=== PATIENT | female | born 2000 | race Caucasian/White ===

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

== ENCOUNTER 2020-11-01 08:26 | Emergency (ER) | payer BC, OTHER ==
[~2020-11-01] VITALS: Ht 154.9 cm; Wt 56.2 kg
[2020-11-01 08:26] VITALS: BP_SYST 110
[2020-11-01] MEDS: NACL 0.9% 1,000 ML IV ONE (08:45)
[2020-11-01] MEDS: KETOROLAC TROMETHAMINE 30 MG VIAL IVP ONE (08:45)
[2020-11-01 09:12] LABS: BILIRUBIN,URINE NEGATIVE (NEGATIVE); BLOOD, URINE 2+ (NEGATIVE); COLOR,URINE YELLOW (YELLOW); GLUCOSE,URINE NEGATIVE (NEGATIVE); KETONES,URINE NEGATIVE (NEGATIVE); LEUKOCYTE ESTERASE ,URINE 1+ (NEGATIVE); NITRITE, URINE NEGATIVE (NEGATIVE); PH,URINE 6.5 (5.0-8.0); PROTEIN URINE 1+ (NEGATIVE); UROBILINOGEN,URINE 0.2 (0.2-1.0)
[2020-11-01 09:15] LABS: CLARITY/URINE HAZY (CLEAR)
[2020-11-01 09:18] LABS: RBC,URINE 20-50 /HPF (0-3)
[2020-11-01 09:19] LABS: BACTERIA,URINE MODERATE /HPF (None Seen)
[2020-11-01 09:26] LABS: BASOPHILS # (AUTO) 0.1 K/uL (0.0-0.2); BASOPHILS % (AUTO) 0.6 % (0.0-2.0); EOSINOPHILS # (AUTO) 0.5 K/uL (0.0-0.4); EOSINOPHILS % (AUTO) 4.5 % (0.0-4.0); HEMATOCRIT 36.2 % (36-48); HEMOGLOBIN 12.3 g/dL (12.0-16.0); LYMPHOCYTES # (AUTO) 1.4 K/uL (1.0-5.5); LYMPHOCYTES % (AUTO) 12.7 % (20.5-51.5); MEAN CORPUSCULAR HEMOGLOBIN 30 pg (27-31); MEAN CORPUSCULAR HGB CONC 34 % (32-36); MEAN CORPUSCULAR VOLUME 89 fL (79.0-98.0); MONOCYTES # (AUTO) 0.8 K/uL (0.0-1.0); MONOCYTES % (AUTO) 7.4 % (1.7-9.3); NEUTROPHILS # (AUTO) 8.2 K/uL (1.8-7.7); NEUTROPHILS % (AUTO) 74.8 % (40.0-70.0); PLATELET COUNT (AUTO) 301 K/uL (130-430); RED BLOOD CELL COUNT(AUTO) 4.06 MIL/uL (4.2-6.2); RED CELL DISTRIBUTION WIDTH 13.6 % (9.0-15.0)
[2020-11-01 09:32] LABS: CALCIUM 8.5 mg/dL (8.4-11.0); CREATININE 0.76 mg/dL (0.55-1.30); POTASSIUM 3.9 mmol/L (3.5-5.1)
[2020-11-01 09:38] LABS: ALBUMIN 3.7 g/dL (3.4-4.8); TOTAL BILIRUBIN 0.2 mg/dL (0.0-1.0)
[2020-11-01] MEDS: cefTRIAXone 1 GM IVPB PREMIX 50 ML IV ONE (10:40)
[2020-11-01] MEDS ORDERED: NITR-85 PO (11:59)
[2020-11-01 13:51] VITALS: BP_SYST 110
== END 2020-11-01 13:52 | disposition home or self-care (01) ==
LOC: SED 08:26
DX: N39.0 Urinary tract infection, site not specified (principal)
CPT/HCPCS: 36415; 74176; 76376; 80053; 81000; 85025; 87040; 87086; 96361; 96365; 96374; 99284; J7030

== ENCOUNTER 2021-11-17 08:01 | Emergency (ER) | payer BC ==
[~2021-11-17] VITALS: Ht 154.9 cm; Wt 56.7 kg
[~2021-11-17 08:01] MED LIST: NITR-85 PO
[2021-11-17 08:26] VITALS: BP_SYST 119
[2021-11-17] MEDS ORDERED: IBUP-1969 PO (08:33)
[2021-11-17] MEDS ORDERED: CEPH-548 PO (08:33)
[2021-11-17 08:39] VITALS: BP_SYST 119
== END 2021-11-17 08:39 | disposition home or self-care (01) ==
LOC: SED 08:01
DX: L73.8 Other specified follicular disorders (principal); Z79.899 Other long term (current) drug therapy
CPT/HCPCS: 99283

== ENCOUNTER 2024-02-25 19:44 | Emergency (ER) | payer BC ==
[~2024-02-25] VITALS: Ht 154.9 cm; Wt 55.8 kg
[~2024-02-25 19:44] MED LIST changes: +CEPH-548 PO; +IBUP-1969 PO
[2024-02-25 19:54] VITALS: BP_SYST 116; PULSE 88; RESP 19; TEMP 97.8; O2SAT 99
[2024-02-25] MEDS: KETOROLAC TROMETHAMINE 30 MG VIAL IVP ONE (20:14)
[2024-02-25] MEDS: NACL 0.9% 1,000 ML IV ONE (20:16)
[2024-02-25 20:45] LABS: ALBUMIN 4.2 g/dL (3.4-4.8); BILIRUBIN,DIRECT 0.1 mg/dL (0.0-0.3); CREATININE 0.87 mg/dL (0.55-1.30); POTASSIUM 3.5 mmol/L (3.5-5.1); TOTAL BILIRUBIN 0.4 mg/dL (0.0-1.0); TOTAL PROTEIN, SERUM 7.6 g/dL (6.4-8.3)
[2024-02-25 21:14] LABS: BASOPHILS % (AUTO) 0.6 % (0.0-2.0); EOSINOPHILS # (AUTO) 0.2 K/uL (0.0-0.4); EOSINOPHILS % (AUTO) 2.5 % (0.0-4.0); HEMATOCRIT 38.5 % (36-48); HEMOGLOBIN 13.3 g/dL (12.0-16.0); LYMPHOCYTES # (AUTO) 2.7 K/uL (1.0-5.5); LYMPHOCYTES % (AUTO) 31.5 % (20.5-51.5); MEAN CORPUSCULAR HEMOGLOBIN 30 pg (27-31); MEAN CORPUSCULAR HGB CONC 35 % (32-36); MEAN CORPUSCULAR VOLUME 88 fL (79.0-98.0); MONOCYTES # (AUTO) 0.5 K/uL (0.0-1.0); MONOCYTES % (AUTO) 5.9 % (1.7-9.3); NEUTROPHILS % (AUTO) 59.5 % (40.0-70.0); PLATELET COUNT (AUTO) 321 K/uL (130-430); RED BLOOD CELL COUNT(AUTO) 4.37 MIL/uL (4.2-6.2); RED CELL DISTRIBUTION WIDTH 13.7 % (9.0-15.0); WHITE BLOOD COUNT (AUTO) 8.4 K/uL (4.8-10.8)
[2024-02-25] MEDS ORDERED: ONDA-8 TL (21:49)
[2024-02-25] MEDS ORDERED: IBUP-2018 PO (21:49)
[2024-02-25 22:01] LABS: BILIRUBIN,URINE NEGATIVE (NEGATIVE); BLOOD, URINE NEGATIVE (NEGATIVE); CLARITY/URINE CLEAR (CLEAR); COLOR,URINE YELLOW (YELLOW); GLUCOSE,URINE NEGATIVE (NEGATIVE); KETONES,URINE NEGATIVE (NEGATIVE); LEUKOCYTE ESTERASE ,URINE NEGATIVE (NEGATIVE); NITRITE, URINE NEGATIVE (NEGATIVE); PH,URINE 6.5 (5.0-8.0); PROTEIN URINE NEGATIVE (NEGATIVE); UROBILINOGEN,URINE 0.2 (0.2-1.0)
[2024-02-26 00:38] VITALS: BP_SYST 118; PULSE 68; RESP 20; TEMP 98.1; O2SAT 98
== END 2024-02-26 00:38 | disposition home or self-care (01) ==
LOC: SED 19:44
DX: R10.31 Right lower quadrant pain (principal); J45.909 Unspecified asthma, uncomplicated; Z79.899 Other long term (current) drug therapy; Z79.2 Long term (current) use of antibiotics
CPT/HCPCS: 99285; 74176; 96374; 76856; 96361; 80076; 80048; 81001; 83690; 85025; 87210; 36415; 81025; J1885; J7030; 81003